=== PATIENT | female | born 1985 | race Caucasian/White ===

== ENCOUNTER 2018-05-05 04:41 | Emergency (ER) | payer OTHER, MEDICAID ==
[~2018-05-05] VITALS: Ht 149.9 cm; Wt 61.2 kg
[~2018-05-05 04:41] MED LIST: ALPRAZOLAM; CARAFATE1 GM PO; CELEXA20 MG PO; HYDROCODON-ACE1 EAC7 PO; HYDROCODONE-AP1 EAC6 PO; IBUPROFEN 800800 M1 PO; LEVOTHYROXIN0.075 MG PO; NORCO 5-325 TA1 EAC1 PO; NORCO 5-325 TA1 EACH PO; PREDNISONE50 MG PO; PROTONIX 20 MG20 M1 PO; PROZAC 20 MG20 M1; UNICOMPLEX M TA1 TA1 PO; VALIUM5 MG PO; ZOFRAN ODT4 MG PO
[2018-05-05] MEDS ORDERED: HYDROCODONE-AP1 EAC6 PO (04:59)
[2018-05-05] MEDS ORDERED: AMOXICILLIN875 MG PO (04:59)
[2018-05-05 05:09] VITALS: BP 116/65
== END 2018-05-05 05:10 | disposition home or self-care (01) ==
LOC: M.ERS 04:41
DX: J02.9 Acute pharyngitis, unspecified (principal); F41.9 Anxiety disorder, unspecified; F32.9 Major depressive disorder, single episode, unspecified; F17.210 Nicotine dependence, cigarettes, uncomplicated

== ENCOUNTER 2018-08-07 08:43 | Emergency (ER) | payer OTHER, MEDICAID ==
[~2018-08-07] VITALS: Ht 149.9 cm; Wt 56.7 kg
[~2018-08-07 08:43] MED LIST changes: +AMOXICILLIN875 MG PO
[2018-08-07] MEDS ORDERED: VITAMINC500 PO (08:52)
[2018-08-07] MEDS ORDERED: LAMICTAL XR100 MG PO (08:52)
[2018-08-07] MEDS ORDERED: CELEXA40 MG PO (08:52)
[2018-08-07 09:21] LABS: ABSOLUTE BASOPHILS 0.1 thou/uL (0.0-0.2); ABSOLUTE EOSINOPHILS 0.1 thou/uL (0.0-0.7); ABSOLUTE LYMPHOCYTES 1.8 thou/uL (0.8-5.3); ABSOLUTE MONOCYTES 0.7 thou/uL (0.0-1.2); ABSOLUTE NEUTROPHILS 7.6 thou/uL (1.6-8.1); BASOPHILS 0.6 %; HEMATOCRIT 38.1 % (37.0-47.0); HEMOGLOBIN 12.8 gm/dL (12.0-15.0); LYMPHOCYTES 17.3 %; MCH 32.1 pg (26.0-34.0); MCHC 33.7 g/dL (28.0-37.0); MCV 95.3 fL (80.0-100.0); MONOCYTES 7.1 %; MPV 7.5 fl. (7.2-11.1); NUCLEATED RBCS 0 /100WBC; PLATELET COUNT* 309 thou/uL (150-400); RDW-CV 13.7 % (10.5-14.5); WBC 10.3 thou/uL (4.0-11.0)
[2018-08-07 09:25] LABS: CALCIUM 8.3 mg/dL (8.5-10.1); CREATININE 0.6 mg/dL (0.6-1.3); POTASSIUM 3.6 mmol/L (3.5-5.1)
[2018-08-07 09:29] LABS: URINE BILIRUBIN NEGATIVE (Negative); URINE BLOOD NEGATIVE (Negative); URINE CLARITY CLEAR; URINE COLOR YELLOW; URINE GLUCOSE-RANDOM NEGATIVE (Negative); URINE KETONES 1+ (Negative); URINE LEUKOCYTES-REFLEX NEGATIVE (Negative); URINE NITRITE-REFLEX NEGATIVE (Negative); URINE PROTEIN NEGATIVE (Negative); URINE SPECIFIC GRAVITY 1.025 (1.005-1.030); URINE UROBILINOGEN 0.2 E.U./dl (0.2-1.0)
[2018-08-07 09:29] LABS: ALBUMIN 3.5 g/dL (3.4-5.0); TOTAL BILIRUBIN 0.3 mg/dL (<0.1-1.0); TOTAL PROTEIN 7.2 g/dL (6.4-8.2)
[2018-08-07] MEDS ORDERED: PHENERGAN 25 MG25 M1 PO (10:53)
[2018-08-07 10:56] VITALS: BP 88/50
== END 2018-08-07 10:57 | disposition home or self-care (01) ==
LOC: M.ERS 08:43
PROVIDERS: Family Medicine
DX: R10.9 Unspecified abdominal pain (principal); R19.7 Diarrhea, unspecified; R11.2 Nausea with vomiting, unspecified

== ENCOUNTER 2018-08-16 03:27 | Emergency (ER) | payer OTHER, MEDICAID ==
[~2018-08-16] VITALS: Ht 149.9 cm; Wt 56.7 kg
[~2018-08-16 03:27] MED LIST changes: +CELEXA40 MG PO; +LAMICTAL XR100 MG PO; +PHENERGAN 25 MG25 M1 PO; +VITAMINC500 PO
[2018-08-16 03:42] LABS: ABSOLUTE BASOPHILS 0.1 thou/uL (0.0-0.2); ABSOLUTE EOSINOPHILS 0.2 thou/uL (0.0-0.7); ABSOLUTE LYMPHOCYTES 2.4 thou/uL (0.8-5.3); ABSOLUTE MONOCYTES 1.3 thou/uL (0.0-1.2); ABSOLUTE NEUTROPHILS 13.3 thou/uL (1.6-8.1); BASOPHILS 0.8 %; EOSINOPHILS 1.2 %; HEMATOCRIT 40.1 % (37.0-47.0); HEMOGLOBIN 13.3 gm/dL (12.0-15.0); LYMPHOCYTES 13.6 %; MCH 31.9 pg (26.0-34.0); MCHC 33.2 g/dL (28.0-37.0); MCV 95.8 fL (80.0-100.0); MONOCYTES 7.3 %; MPV 7.5 fl. (7.2-11.1); NUCLEATED RBCS 0 /100WBC; PLATELET COUNT* 310 thou/uL (150-400); POLYS 77.1 %; RBC 4.18 mil/uL (4.20-5.00); RDW-CV 13.6 % (10.5-14.5); WBC 17.3 thou/uL (4.0-11.0)
[2018-08-16 03:50] LABS: ANION GAP 11 mmol/L (7-16); BUN 11 mg/dL (7-18); CHLORIDE 108 mmol/L (98-107); CO2 24 mmol/L (21-32); CREATININE 0.9 mg/dL (0.6-1.3); GLUCOSE 89 mg/dL (70-99); POTASSIUM 3.6 mmol/L (3.5-5.1); SODIUM 143 mmol/L (136-145)
[2018-08-16] MEDS ORDERED: CARAFATE 1 GM TA1 G1 (03:50)
[2018-08-16 03:55] LABS: ALKALINE PHOSPHATASE 70 U/L (46-116); SGOT 14 U/L (15-37); SGPT 18 U/L (30-65); TOTAL BILIRUBIN < 0.1 mg/dL (<0.1-1.0); TOTAL PROTEIN 7.8 g/dL (6.4-8.2)
[2018-08-16 04:00] LABS: ALCOHOL 190 mg/dL (<10); SALICYLATE 4.2 mg/dL (2.8-20.0)
[2018-08-16 04:02] LABS: ACETAMINOPHEN < 2 ug/mL (10-30)
[2018-08-16 04:09] LABS: URINE BILIRUBIN NEGATIVE (Negative); URINE BLOOD NEGATIVE (Negative); URINE CLARITY CLEAR; URINE COLOR YELLOW; URINE GLUCOSE-RANDOM NEGATIVE (Negative); URINE KETONES NEGATIVE (Negative); URINE LEUKOCYTES-REFLEX NEGATIVE (Negative); URINE NITRITE-REFLEX NEGATIVE (Negative); URINE PROTEIN NEGATIVE (Negative); URINE UROBILINOGEN 0.2 E.U./dl (0.2-1.0)
[2018-08-16 04:16] LABS: AMP/METHAMP Negative (Negative); BARBITURATES Negative (Negative); BENZODIAZEPINES POSITIVE (Negative); COCAINE Negative (Negative); METHADONE Negative (Negative); OPIATES Negative (Negative); PCP Negative (Negative); THC Negative (Negative)
[2018-08-16] MEDS ORDERED: PHENERGAN 25 MG25 M1 PO (13:39)
[2018-08-16 23:03] VITALS: BP 97/60
== END 2018-08-16 23:04 ==
LOC: M.ERS 03:27
PROVIDERS: Emergency Medicine
DX: R45.851 Suicidal ideations (principal); F32.9 Major depressive disorder, single episode, unspecified; F41.9 Anxiety disorder, unspecified; E07.9 Disorder of thyroid, unspecified; Z98.890 Other specified postprocedural states; F17.210 Nicotine dependence, cigarettes, uncomplicated

== ENCOUNTER 2018-10-06 10:24 | Emergency (ER) | payer OTHER, MEDICAID ==
[~2018-10-06] VITALS: Ht 152.4 cm; Wt 55.3 kg
[~2018-10-06 10:24] MED LIST changes: +CARAFATE 1 GM TA1 G1
[2018-10-06 10:54] LABS: URINE BILIRUBIN NEGATIVE (Negative); URINE BLOOD TRACE (Negative); URINE CLARITY CLEAR; URINE COLOR YELLOW; URINE GLUCOSE-RANDOM NEGATIVE (Negative); URINE KETONES NEGATIVE (Negative); URINE LEUKOCYTES-REFLEX NEGATIVE (Negative); URINE NITRITE-REFLEX NEGATIVE (Negative); URINE PROTEIN NEGATIVE (Negative); URINE SPECIFIC GRAVITY <= 1.005 (1.005-1.030); URINE UROBILINOGEN 0.2 E.U./dl (0.2-1.0)
[2018-10-06] MEDS ORDERED: ZANAFLEX4 MG PO (12:52)
[2018-10-06] MEDS ORDERED: NABUMETONE 750750 M1 PO (12:52)
[2018-10-06 13:01] VITALS: BP 127/70
== END 2018-10-06 13:03 | disposition home or self-care (01) ==
LOC: M.ERS 10:24
PROVIDERS: Nurse Practitioner Family
DX: S16.1XXA Strain of muscle, fascia and tendon at neck level, initial encounter (principal); S39.012A Strain of muscle, fascia and tendon of lower back, initial encounter; S29.012A Strain of muscle and tendon of back wall of thorax, initial encounter; S40.022A Contusion of left upper arm, initial encounter; S80.12XA Contusion of left lower leg, initial encounter; V47.5XXA Car driver injured in collision with fixed or stationary object in traffic accident, initial encounter; Y93.89 Activity, other specified; Y92.89 Other specified places as the place of occurrence of the external cause; Y99.8 Other external cause status; F32.9 Major depressive disorder, single episode, unspecified; F41.9 Anxiety disorder, unspecified; E07.9 Disorder of thyroid, unspecified; F17.210 Nicotine dependence, cigarettes, uncomplicated

== ENCOUNTER → 2018-11-05 | Outpatient (CLI) | payer OTHER, MEDICAID ==
[~2018-11-05] MED LIST changes: +NABUMETONE 750750 M1 PO; +ZANAFLEX4 MG PO
== END ==
LOC: M.RAD 11:00
DX: I87.8 Other specified disorders of veins (principal)